=== PATIENT | female | born 1990 | race Hispanic/Latino ===

== ENCOUNTER 2016-10-21 21:47 | Emergency (ER) | payer SELFPAY ==
[2016-10-22] MEDS ORDERED: MOTRIN PO ONE (01:04)
[2016-10-22] MEDS ORDERED: TETRACAINE 0.5% OU ONE (01:05)
[2016-10-22] MEDS ORDERED: FUL-GLO OP ONE ×2 (01:05→01:06)
--- NOTE | 2016-10-22 01:07 | Emergency Department Report ---
[facility] Chief Complaint: Eye Problems Stated Complaint: RT EYE IRRITATION/RED Time Seen by Provider: 10/22/16 00:52 Side: Right Severity: moderate Symptoms: Yes Eye Itching, Yes Eye Redness, Yes Eye Pain, Yes Mucous Drainage, Yes Blurred Vision, Yes Preceding URI, No Purulent Drainage, No Contact Lens Use , No Trauma, No Fever, No Headache Other History: 26-year-old legally blind from female presents with complaint of 3 days of right-sided eye irritation. Patient also complaining of sore throat and states she has been feeling slight chills. Patient is nontoxic appearing awake alert and oriented 3 pleasant conversant and fully lucid sitting calmly in examination room. ED Review of Systems ROS: Stated complaint: RT EYE IRRITATION/RED Other details as noted in HPI Constitutional: denies: chills, fever Eyes: eye discharge (patient states she has crusty yellow mucoid discharge for the last 3 days). denies: eye pain, vision change ENT: denies: ear pain, throat pain Respiratory: denies: cough, shortness of breath, wheezing Cardiovascular: denies: chest pain, palpitations Endocrine: no symptoms reported Gastrointestinal: denies: abdominal pain, nausea, diarrhea Genitourinary: denies: urgency, dysuria, discharge Musculoskeletal: denies: back pain, joint swelling, arthralgia Skin: denies: rash, lesions Neurological: denies: headache, weakness, paresthesias Psychiatric: denies: anxiety, depression Hematological/Lymphatic: denies: easy bleeding, easy bruising ED Past Medical Hx - Past Medical History Previous Medical History?: Yes Additional medical history: Legaly Blind - Surgical History Past Surgical History?: Yes Additional Surgical History: Eye - Social History Smoking Status: Never Smoker Substance Use Type: None - Medications Home Medications: Home Medications Medication Instructions Recorded Confirmed Last Taken Type Ibuprofen [Motrin] 600 mg PO Q8H PRN #25 tablet 10/22/16 Unknown Rx Tobramycin 0.3% [Tobrex] 1 drop OD Q4H #1 bottle 10/22/16 Unknown Rx [facility] Exam - Exam General: Vital signs noted. No distress. Alert and acting appropriately. Eye Exam: Right Injection, Right Chemosis, Right Eye Foreign Body, Right Purulent Discharge, Right Fluorescein Uptake HEENT: No Nasal Congestion, No Pharyngeal Erythema Remainder of HEENT: Normal Lungs: Yes Clear Lung Sounds, Yes Good Air Exchange, No Wheezes, No Stridor, No Cough, No Nasal Flaring, No Retractions, No Use of Accessory Muscles ED Course Vital Signs 10/21/16 22:18 Temperature 98.6 F Pulse Rate 93 H Respiratory 16 Rate Blood Pressure 112/78 [Right] O2 Sat by Pulse 100 Oximetry ED Medical Decision Making - Medical Decision Making A/P: Right eye conjunctivitis, possible small corneal abrasion 1-patient is legally blind 2-flourescien stained showed a tiny corneal abrasion, small particle possibly of sand or tiny particle of debris visible and bottom eyelid, flushed out, visible to on inscpection 3-intraocular pressure 22 RE 4-follow-up with ophthalmology 5- tobramycin drops, Motrin when necessary 6-strep negative, urinalysis unremarkable Critical care attestation.: If time is entered above; I have spent that time in minutes in the direct care of this critically ill patient, excluding procedure time. ED Disposition Clinical Impression: Conjunctivitis Qualifiers: Conjunctivitis type: acute Acute conjunctivitis type: unspecified Laterality: right Qualified Code(s): H10.31 - Unspecified acute conjunctivitis, right eye Disposition: DISCHARGED TO HOME OR SELFCARE Is pt being admited?: No Does the pt Need Aspirin: No Condition: Stable Instructions: Conjunctivitis (ED) Prescriptions: Ibuprofen [Motrin] 600 mg PO Q8H PRN #25 tablet PRN Reason: Pain Tobramycin 0.3% [Tobrex] 1 drop OD Q4H #1 bottle Referrals: SELENA PRESSLEY MD [Staff Physician] - 3-5 Days Time of Disposition: 02:29
[2016-10-22 01:46] LABS: Bacteria,Urine 4+ /HPF (Negative); Bilirubin,Urine NEG (Negative); Blood,Urine NEG (Negative); Ketones,Urine NEG (Negative); Leukocyte Esterase,Urine NEG (Negative); Mucus,Urine FEW /HPF; Nitrite,Urine NEG (Negative); Protein,Urine <15 mg/dL mg/dL (Negative); Urobilinogen,Urine < 2.0 mg/dL (<2.0)
[2016-10-22 02:38] VITALS: BP 119/73
== END 2016-10-22 02:37 | disposition home or self-care (01) ==
LOC: ED 21:47
DX: H10.31 Unspecified acute conjunctivitis, right eye (principal)
CPT/HCPCS: 81001; 81025; 87086; 87116; 87430; 99283